=== PATIENT | male | born 1965 | race Caucasian/White ===

== ENCOUNTER 2016-12-09 23:36 | Observation (INO) | payer SELFPAY ==
[~2016-12-09] VITALS: Ht 175.3 cm; Wt 79.8 kg
[~2016-12-09 23:36] MED LIST: HYDR-5688 PO
[2016-12-10] VITALS (8 sets, daily range): BP systolic 116–149; BP diastolic 75–84; PULSE 75–92; TEMP 36.4–37.2; O2SAT 96–99; Ht 175.3 cm; Wt 79.8 kg
[2016-12-10] MEDS ORDERED: ONDANSETRON INJ 2 MG/ML 2 ML VIAL IV STA (00:31)
[2016-12-10] MEDS ORDERED: SODIUM CHLORIDE 0.9% 1000ML 2,000 ML IV STA (00:31)
[2016-12-10 00:35] LABS: BASO % 0.2 %; BASO ABS # 0.03 K/uL (0-0.2); COMPLETE YES; EOS % 1.1 %; IG% 0.3 %; LYMPH % 15.2 %; LYMPH ABS # 2.14 K/uL (1.2-3.4); MEAN CELL VOLUME 87.5 fL (80-100); MEAN CORPUSCULAR HEMOGLOBIN 30.2 pg (25-34); MEAN CORPUSCULAR HGB CONC 34.5 g/dl (32-36); MEAN PLATELET VOLUME 11.3 fL (7.4-10.4); NEUT % 74.2 %; PLATELET COUNT 225 K/uL (130-400); RED BLOOD COUNT 5.37 M/uL (4.7-6.1); WHITE BLOOD COUNT 14.07 K/uL (4.8-10.8)
[2016-12-10] MEDS ORDERED: HYDROmorphone INJ 1 MG/ML SYR IV PRN ×3 (00:45→08:00)
[2016-12-10] MEDS ORDERED: OPTIRAY 320 IV PRN (00:45)
[2016-12-10 00:51] LABS: BUN/CREATININE RATIO 9.7 (10-20); CALCIUM 9.1 mg/dl (8.5-10.1); POTASSIUM 3.8 mmol/L (3.5-5.1)
[2016-12-10 01:11] LABS: MANUAL MICROSCOPIC REQUIRED? YES; URINE APPEARANCE CLEAR (CLEAR); URINE BILIRUBIN NEG (NEG); URINE COLOR YELLOW; URINE NITRITE NEG (NEG); URINE SPECIFIC GRAVITY 1.015 (1.000-1.030); UROBILINOGEN NEG (NEG)
[2016-12-10 01:15] LABS: REVIEW REQ? NO
[2016-12-10 01:23] LABS: URINE BACTERIA NEG (NEG); URINE WBC 0 /hpf (0-5); ZZUR CULT IF INDIC CLEAN CATCH NO
[2016-12-10] MEDS ORDERED: SODIUM CHLORIDE 0.9% 1000ML 1,000 ML IV STA (02:13)
[2016-12-10] MEDS ORDERED: KETOROLAC TROMETHAMINE 30 MG/ML VIAL IV STA (02:13)
[2016-12-10] MEDS ORDERED: CEFOXITIN SOD 2 GM VIAL IV STA (02:13)
[2016-12-10] MEDS ORDERED: HYDROmorphone INJ 0.5 MG/0.5 ML SYR IV PRN (02:15)
[2016-12-10] MEDS ORDERED: IV FLUIDS COMPLETED PRN (02:30)
--- NOTE | 2016-12-10 03:45 | EMERGENCY ROOM VISIT NOTE ---
History Report prepared by Dianaibcarline: Miles Tello Under the Supervision of: Dr. Graham Stubbs M.D. First contact with patient: 00:13 Chief Complaint: ABDOMINAL PAIN Stated Complaint: PAIN ABDOMEN Nursing Triage Summary: pt c/o abd pain and n/v on saturday and sat. no bm since sat morning History of Present Illness The patient is a 51 year old male who presents to the Emergency Room with complaints of persistent lower abdominal pain that began on Saturday, two days prior to arrival. His pain is worsened with movement. The patient states that he had a few drinks and ate a few hotdogs after work on Saturday before vomiting profusely when he arrived home. He also notes that it has been 24 hours since his last bowel movement, but this is not unusual for him. He denies any history of abdominal surgeries/complications. Patient denies LOC, headache, fevers, chills, diaphoresis, visual changes, neck pain, chest pain, breathing difficulties, back pain, melena, hematochezia, urinary symptoms, numbness, weakness, lymphadenopathy, rash, or other complaints. 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 A total of ten systems were reviewed and were otherwise negative. Past Medical & Surgical Medical Problems: (1) Appendicitis Patient notes no past medical/surgical history. Family History Patient denies any family medical histories. Social History Smoking Status: Current Every Day Smoker Marital Status: in relationship Housing Status: lives with significant other Occupation Status: employed Current/Historical Medications No Active Prescriptions or Reported Meds Allergies Coded Allergies: No Known Allergies (Unverified , 12/10/16) Physical Exam Vital Signs Date Time Temp Pulse Resp B/P Pulse Ox O2 Delivery O2 Flow Rate FiO2 12/10/16 02:42 93 18 133/91 98 Room Air 12/10/16 01:17 93 18 125/90 99 Room Air 12/09/16 23:39 36.9 112 18 133/92 98 Room Air Physical Exam GENERAL: Awake, alert, well-appearing, in no distress HENT: Normocephalic, atraumatic. Oropharynx unremarkable. EYES: Normal conjunctiva. Sclera non-icteric. NECK: Supple. No nuchal rigidity. FROM. No JVD. RESPIRATORY: Clear to auscultation. CARDIAC: Regular rate, normal rhythm. Extremities warm and well perfused. Pulses equal. ABDOMEN: Soft, non-distended. Lower quadrant tenderness to palpation. No rebound or guarding. No masses. RECTAL: Deferred. MUSCULOSKELETAL: Chest examination reveals no tenderness. The back is symmetrical on inspection without obvious abnormality. There is no CVA tenderness to palpation. No joint edema. LOWER EXTREMITIES: Calves are equal size bilaterally and non-tender. No edema. No discoloration. NEURO: Normal sensorium. No sensory or motor deficits noted. SKIN: No rash or jaundice noted. Medical Decision & Procedures ER Provider Diagnostic Interpretation: X ray results as stated below per my interpretation and radiologist interpretation. Other radiology results as stated below per my review and radiologist interpretation ABDOMEN/PELVIS CT: Inflammation seen about the appendix which contains an appendicolith at the proximal aspect. Appendix is 7 mm. Possibility of a very early appendicitis. No other pathology noted. Laboratory Results 12/10/16 00:18 Red Blood Count 5.37, Mean Corpuscular Volume 87.5, Mean Corpuscular Hemoglobin 30.2, Mean Corpuscular Hemoglobin Concent 34.5, Mean Platelet Volume 11.3, Neutrophils (%) (Auto) 74.2, Lymphocytes (%) (Auto) 15.2, Monocytes (%) (Auto) 9.0, Eosinophils (%) (Auto) 1.1, Basophils (%) (Auto) 0.2, Neutrophils # (Auto) 10.43, Lymphocytes # (Auto) 2.14, Monocytes # (Auto) 1.27, Eosinophils # (Auto) 0.16, Basophils # (Auto) 0.03 12/10/16 00:18 Test 12/10/16 00:18 12/10/16 00:50 White Blood Count 14.07 K/uL (4.8-10.8) Red Blood Count 5.37 M/uL (4.7-6.1) Hemoglobin 16.2 g/dL (14.0-18.0) Hematocrit 47.0 % (42-52) Mean Corpuscular Volume 87.5 fL (80-100) Mean Corpuscular Hemoglobin 30.2 pg (25-34) Mean Corpuscular Hemoglobin Concent 34.5 g/dl (32-36) Platelet Count 225 K/uL (130-400) Mean Platelet Volume 11.3 fL (7.4-10.4) Neutrophils (%) (Auto) 74.2 % Lymphocytes (%) (Auto) 15.2 % Monocytes (%) (Auto) 9.0 % Eosinophils (%) (Auto) 1.1 % Basophils (%) (Auto) 0.2 % Neutrophils # (Auto) 10.43 K/uL (1.4-6.5) Lymphocytes # (Auto) 2.14 K/uL (1.2-3.4) Monocytes # (Auto) 1.27 K/uL (0.11-0.59) Eosinophils # (Auto) 0.16 K/uL (0-0.5) Basophils # (Auto) 0.03 K/uL (0-0.2) RDW Standard Deviation 43.5 fL (36.4-46.3) RDW Coefficient of Variation 13.5 % (11.5-14.5) Immature Granulocyte % (Auto) 0.3 % Immature Granulocyte # (Auto) 0.04 K/uL (0.00-0.02) Anion Gap 11.0 mmol/L (3-11) Est Creatinine Clear Calc Drug Dose 88.4 ml/min Estimated GFR () 101.3 Estimated GFR (Non- 87.4 BUN/Creatinine Ratio 9.7 (10-20) Calcium Level 9.1 mg/dl (8.5-10.1) Total Bilirubin 0.6 mg/dl (0.2-1) Direct Bilirubin 0.1 mg/dl (0-0.2) Aspartate Amino Transf (AST/SGOT) 50 U/L (15-37) Alanine Aminotransferase (ALT/SGPT) 112 U/L (12-78) Alkaline Phosphatase 90 U/L (45-117) Total Protein 7.7 gm/dl (6.4-8.2) Albumin 3.9 gm/dl (3.4-5.0) Lipase 161 U/L (73-393) Urine Color YELLOW Urine Appearance CLEAR (CLEAR) Urine pH 6.0 (4.5-7.5) Urine Specific [place] 1.015 (1.000-1.030) Urine Protein NEG (NEG) Urine Glucose (UA) NEG (NEG) Urine Ketones NEG (NEG) Urine Occult Blood 1+ (NEG) Urine Nitrite NEG (NEG) Urine Bilirubin NEG (NEG) Urine Urobilinogen NEG (NEG) Urine Leukocyte Esterase NEG (NEG) Urine RBC 5-10 /hpf (0-4) Urine WBC 0 /hpf (0-5) Urine Epithelial Cells 0-5 /lpf (0-5) Urine Bacteria NEG (NEG) Laboratory results reviewed by me Medications Administered Medications (Trade) Dose Ordered Sig/Robbie Route Start Time Stop Time Status Last Admin Dose Admin Sodium Chloride (Nss 1000ml) 2,000 ml @ 999 mls/hr Q2H1M STAT IV 12/10/16 00:31 12/10/16 02:31 DC 12/10/16 00:47 999 MLS/HR Ondansetron HCl (Zofran Inj) 4 mg NOW STAT IV 12/10/16 00:31 12/10/16 00:32 DC 12/10/16 00:47 4 MG Hydromorphone HCl (Dilaudid Inj) 1 mg Q15M PRN IV 12/10/16 00:45 12/10/16 02:22 DC 12/10/16 00:47 1 MG Cefoxitin Sodium (Mefoxin IV) 2,000 mg NOW STAT IV 12/10/16 02:13 12/10/16 02:15 DC 12/10/16 02:37 2,000 MG Ketorolac Tromethamine (Toradol Inj) 10 mg NOW STAT IV 12/10/16 02:13 12/10/16 02:15 DC 12/10/16 02:37 10 MG ED Course 0027: The patient was evaluated in room A11B. A complete history and physical exam was performed. 0031: Ordered Zofran 4 mg IV, Sodium Chloride 2000 mL @ 999 mL/hr IV. 0045: Ordered Dilaudid 1 mg IV. 0132: I checked on the patient at this time. He was doing well. 0217: I discussed the case with Dr. De Leon - General Surgery, he will evaluate the patient for further treatment. Medical Decision Triage Nursing notes reviewed. The patient's presentation and history were concerning for abdominal pain. Etiologies such as appendicitis, diverticulitis, obstruction, inflammatory bowel disease, renal colic, PUD, biliary pathology, pancreatitis, mesenteric ischemia, aortic pathology, infections, genitourinary, UTI, perforated viscus, as well as others were entertained. The patient was evaluated. He was uncomfortable and tender in the lower abdomen. He was hydrated. He is given Zofran and Dilaudid. On reassessment he was feeling better but still had pain in the lower aspect of his abdomen. The patient had a leukocytosis of 14,000. He had slight increased LFTs. Urinalysis was unremarkable. Remainder of chemistries were unremarkable. The patient underwent CT imaging and he had findings concerning for early appendicitis. This would fit clinically with his symptoms and examination. A consultation was made with general surgery, Dr. De Leon. The case was discussed. He recommended IV fluids and agreed with IV Mefoxin. The patient was given 2 g. The patient was nothing by mouth. The patient will be admitted for further treatment. The chart was completed utilizing log[employer] Speech voice recognition software. Grammatical errors, random word insertions, pronoun errors, and incomplete sentences are an occasional consequence of this system due to software limitations, ambient noise, and hardware issues. Any formal questions or concerns about the content, text, or information contained within the body of this dictation should be directly addressed to the physician for clarification. Consults Time Called: 0206 Consulting Physician: Dr. De Leon - General Surgery Returned Call: 0217 I discussed the case with Dr. De Leon - General Surgery, he will evaluate the patient for further treatment. Impression Primary Impression: Acute appendicitis Scribe Attestation The scribe's documentation has been prepared under my direction and personally reviewed by me in its entirety. I confirm that the note above accurately reflects all work, treatment, procedures, and medical decision making performed by me. Departure Information Dispostion Being Evaluated By Surgeon Prescriptions No Active Prescriptions or Reported Meds Referrals No Doctor, Assigned (PCP) Patient Instructions My [facility]
[2016-12-10] MEDS: LACTATED RINGER'S 1000ML 1,000 ML IV SCH ×2 (04:14→07:39)
[2016-12-10] MEDS: HYDROmorphone INJ 1 MG/ML SYR IV PRN ×2 (04:14→07:38)
[2016-12-10] MEDS ORDERED: ONDANSETRON INJ 8 MG in DEXTROSE 5% 50ML 50 ML IV SCH (04:30)
--- NOTE | 2016-12-10 07:17 | DIAGNOSTIC IMAGING REPORT ---
ABDOMEN AND PELVIS CT WITH IV CONTRAST CT DOSE: 367.82 mGy.cm HISTORY: Lower abdominal pain and vomiting. TECHNIQUE: Multiaxial CT images of the abdomen and pelvis were performed following the use of intravenous contrast. COMPARISON STUDY: None. FINDINGS: The lung bases are clear. The spleen, gallbladder, pancreas, kidneys, and adrenal glands are within normal limits. No bowel obstruction. The pelvic organs are unremarkable. No suspicious lytic or blastic osseous lesions. Hepatic steatosis. The tip the appendix is fluid-filled and measures up to 1 cm in diameter. This mild periappendiceal fat stranding. There is a 4 mm appendicolith within the mid appendix on image 355. Therefore, these findings are consistent with acute appendicitis. IMPRESSION: 1. Acute appendicitis. The appendix contains a 4 mm appendicolith. 2. Hepatic steatosis. Electronically signed by: Jarad Shaw M.D. 12/10/2016 7:54 AM Dictated Date/Time: 12/10/2016 7:13 AM
--- NOTE | 2016-12-10 07:20 | History and Physical ---
History & Physical Date Dec 10, 2016. Chief Complaint pt with abdominal pain since saturday..worsened last night. pain now localized to RLQ History of Present Illness The patient is a 51 year old male with complaints of Past Medical/Surgical History Medical Problems: (1) Appendicitis Additional History Hepatic Disease: No Endocrine Disorder: No Kidney Disease: No Hypertension: No Heart Disease: No Bleeding Tendencies: No Infectious Diseases: No Allergies Coded Allergies: No Known Allergies (Unverified , 12/10/16) Home Medications No Active Prescriptions or Reported Meds Physical Examination Skin: warm/dry Eyes: normal inspection, EOMI ENT: normal ENT inspection Head: normocephalic Neck: supple, no adenopathy Respiratory/Chest: lungs clear, no respiratory distress Cardiovascular: regular rate, rhythm Abdomen / GI: + pertinent finding (+RLQ ttp. + guarding) Extremities: normal inspection Diagnosis acute appendicitis discussed options/risks ( bleeding/infection/abcess/dvt/pe/mi/injury to another organ etc...) answered questions ok to proceed with lap appy/poss open
[2016-12-10] MEDS ORDERED: GLYCOPYRROLATE INJ 0.2 MG/ML VIAL ONE ×2 (07:25→09:41)
[2016-12-10] MEDS ORDERED: PROPOFOL IV EMULSION 10 MG/ML 20 ML VIAL IV ONE (07:25)
[2016-12-10] MEDS ORDERED: FENTANYL CITRATE INJ 50 MCG/1 ML 2 ML VIAL ONE ×2 (07:25→09:23)
[2016-12-10] MEDS ORDERED: ONDANSETRON INJ 2 MG/ML 2 ML VIAL ONE (07:25)
[2016-12-10] MEDS ORDERED: LIDOCAINE HCL 2% 2 ML VIAL (20MG/ML) ONE (07:25)
[2016-12-10] MEDS ORDERED: NEOSTIGMINE METHYLSULFATE 5 MG/5 ML SYR ONE (07:25)
[2016-12-10] MEDS ORDERED: MIDAZOLAM HCL 1 MG/ML 2ML VIAL ONE (07:25)
[2016-12-10] MEDS ORDERED: DEXAMETHASONE SOD INJ 4 MG/ML VIAL ONE (07:25)
[2016-12-10] MEDS ORDERED: ROCURONIUM BROMIDE 10 MG/ML 5 ML VIAL ONE (07:25)
[2016-12-10] MEDS ORDERED: EpHEDrine SULFATE INJ 50 MG/ML AMP IV PRN (08:00)
[2016-12-10] MEDS ORDERED: ATROPINE SULFATE 0.1 MG/ML 5ML SYR IV PRN (08:00)
[2016-12-10] MEDS ORDERED: ONDANSETRON INJ 2 MG/ML 2 ML VIAL IV PRN (08:00)
[2016-12-10] MEDS ORDERED: FENTANYL CITRATE INJ 50 MCG/1 ML 2 ML VIAL IV PRN (08:00)
[2016-12-10] MEDS ORDERED: BUPIVACAINE/EPINEPHRINE 0.5% MPF 1:200,000 30 ML VIAL ONE (08:46)
--- NOTE | 2016-12-10 10:00 | Medical Student: [facility] ---
Immediate Operative Summary Operative Date Dec 10, 2016. Pre-Operative Diagnosis Acute appendicitis Post-Operative Diagnosis Same as above Procedure(s) Performed Laparoscopic appendectomy Surgeon Dr. De Leon Director Apparel Surgeon(s) Mark Kan PA-C Estimated Blood Loss 10 cc Findings Inflamed and enlarged appendix Specimens 1. Appendix Drains None Anesthesia GETA Complication(s) None Disposition Recovery Room / PACU (In stable condition)
--- NOTE | 2016-12-10 10:09 | [facility] Operative Report ---
Operative Report Operative Date Dec 10, 2016. Pre-Operative Diagnosis Acute Appendicitis Post-Operative Diagnosis same without perforation Procedure(s) Performed lap shayna Surgeon Dr. De Leon Product Marketing Intern Surgeon(s) Taqueria Kan PA-C Estimated Blood Loss 10 ml Findings acutely inflammed appendix Specimens A. Appendix Anesthesia get Complication(s) None Disposition Recovery Room / PACU I attest to the content of the Intraoperative Record and any orders documented therein. Any exceptions are noted below.
--- NOTE | 2016-12-10 10:11 | Discharge Instructions ---
Discharge Instructions Date of Service Dec 10, 2016. Admission Reason for Admission: Appendicitis Discharge Discharge Diagnosis / Problem: acute appendicitis Discharge Goals Goal(s): Improve function Activity Recommendations Activity Limitations: as noted below Lifting Limitations: no more than 10 pounds Exercise/Sports Limitations: until after follow-up appointment May Resume Sexual Activity: after follow-up appointment Shower/Bathe: no limitations . Instructions / Follow-Up Instructions / Follow-Up call [phone] for a f/u appointment with Dr. De Leon or if you have any problems or questions Current Hospital Diet Patient's current hospital diet: Clear Liquid Diet Discharge Diet Recommended Diet: Regular Diet Procedures Procedures Performed: Laparoscopic Appendectomy Pending Studies Studies pending at discharge: yes List of pending studies: path report Medical Emergencies . Who to Call and When: Medical Emergencies: If at any time you feel your situation is an emergency, please call 911 immediately. . Non-Emergent Contact Non-Emergency issues call your: Primary Care Provider, Surgeon Call Non-Emergent contact if: temperature is above 101, wound has increased drainage, wound has increased redness, wound has increased pain . "Provider Documentation" section prepared by Jordan De Leon. VTE Core Measure Inpt VTE Proph given/why not?: SCD's
[2016-12-10] MEDS ORDERED: HYDR-5688 PO (10:12)
[2016-12-10] MEDS ORDERED: HYDROCODONE/ACETAMOPHEN 5/325MG TAB PO PRN ×2 (10:15)
--- NOTE | 2016-12-10 10:46 | Anesthesiology Progress Note ---
Anesthesia Post Op Note Date & Time Dec 10, 2016 at 10:46 Vital Signs Pain Intensity: 3 Vital Signs Past 12 Hours Date Time Temp Pulse Resp B/P Pulse Ox O2 Delivery O2 Flow Rate FiO2 12/10/16 10:30 82 21 104/64 97 Room Air 12/10/16 10:20 92 21 120/87 97 Room Air 12/10/16 10:10 78 14 127/80 100 Mask 10 12/10/16 10:03 36.6 79 14 139/97 99 Mask 10 12/10/16 08:27 97 Room Air 12/10/16 08:27 36.5 84 14 116/75 97 Room Air 12/10/16 07:15 Room Air 12/10/16 04:00 Room Air 12/10/16 04:00 37.2 83 16 124/83 96 Room Air 12/10/16 03:57 87 18 123/79 98 12/10/16 02:42 93 18 133/91 98 Room Air 12/10/16 01:17 93 18 125/90 99 Room Air 12/09/16 23:39 36.9 112 18 133/92 98 Room Air Notes Mental Status: alert / awake / arousable, participated in evaluation Pt Amnestic to Procedure: Yes Nausea / Vomiting: adequately controlled Pain: adequately controlled Airway Patency, RR, SpO2: stable & adequate BP & HR: stable & adequate Hydration State: stable & adequate Anesthetic Complications: no major complications apparent
--- NOTE | 2016-12-10 13:39 | OPERATIVE REPORT ---
DATE OF OPERATION: 12/10/2016 PREOPERATIVE DIAGNOSIS: Acute appendicitis. POSTOPERATIVE DIAGNOSIS: Same without perforation. PROCEDURE: Laparoscopic appendectomy. SURGEON: Dr. De Leon. TAX EVALUATOR: Taqueria Kan PA-C. ESTIMATED BLOOD LOSS: 10 Ml. COMPLICATIONS: No immediate. ANESTHESIA: General. The patient tolerated the procedure well. DESCRIPTION OF PROCEDURE: After informed consent was obtained, the patient was taken to the operating suite, placed in supine position. After successful intubation a Triplett catheter was placed and the abdomen shaved and sterilely prepped and draped in usual fashion. A periumbilical incision made with an 11 blade scalpel and carried down through the soft tissue using electrocautery. The anterior rectus fascia was opened using electrocautery and two #0 Vicryl stay sutures were placed. Peritoneum was elevated with hemostats and incised under direct vision using Metzenbaum scissor. A finger sweep was performed. A 12 mm Lizbeth trocar was placed and the abdomen was insufflated to 18 mmHg. Laparoscope was inserted and the abdomen examined 360 degrees. A suprapubic 5 mm port, and a left lower quadrant 12 mm port were placed under direct vision. The patient was placed in Trendelenburg position slightly airplaned to the left. Our focus turned to the right lower quadrant. There was an acutely inflamed appendix that was attached to the right lower quadrant sidewall. I was able to grasp it and bluntly peel it away from surrounding structures. Primarily the tip was inflamed. It was not perforated and there was no free fecal material or pus in the abdomen. I was able to make a small window in the mesoappendix with a [place] dissector. JAY castillo cartridge linear stapler was used to transect the appendix at its base. A second firing of a similar cartridge was performed to transect the mesoappendix. We then looked in the pelvis; there was no free fluid. There were no other gross abnormalities around the abdomen. There was adequate hemostasis at the end of the procedure. We placed it into an EndoCatch bag and removed it from the camera port site. All the trocars were then removed and the abdomen was desufflated. The fascia of the camera port as well as left lower quadrant fascia was closed with 0 Vicryl in a [id number] fashion. The wounds were irrigated and closed with 4-0 Monocryl. Some Marcaine was injected around it for postoperative analgesia and skin glue used as dressing. The patient was awakened, extubated, and transferred to recovery in stable condition. I attest to the content of the Intraoperative Record and any orders documented therein. Any exceptio ns are noted below.
--- NOTE | 2016-12-20 15:21 | DISCHARGE SUMMARY ---
DISCHARGE DIAGNOSIS: Acute appendicitis. DISCHARGE SUMMARY: This is a 51-year-old male who presented to the [facility] Emergency Room with complaints of abdominal pain. Workup at that time included a CT scan which was consistent with acute appendicitis. This occurred on 12/09/2016. Surgery was consulted. The patient was prepared for surgery and the following on 12/10/2016 underwent a laparoscopic appendectomy. The surgery went without incident. He was transferred to the recovery room and then back to his hospital room following the procedure. He was checked on later in the day, was tolerating liquids, his pain controlled and he desired to go home. Since it was not a perforated appendix we felt that he was stable for discharge on 12/10/2016. He was discharged with written and verbal instructions and was to follow up with myself in the office in a 1-2 week period.
== END 2016-12-10 17:15 | disposition home or self-care (01) ==
LOC: ENRESERVTM → ENRESERVDT → C.EDB 23:37 → C.MSW 12-10 02:18
PROVIDERS: ADMIT Surgery; ATTEND Surgery
DX: K35.80 Unspecified acute appendicitis (principal); F17.210 Nicotine dependence, cigarettes, uncomplicated